=== PATIENT | male | born 1970 | race Two or more races ===

== ENCOUNTER 2023-08-11 12:37 | Emergency (ER) | payer OTHER ==
[~2023-08-11] VITALS: Ht 180.3 cm; Wt 79.4 kg
[~2023-08-11 12:37] MED LIST: FLUCONAZOLE150 MG PO; ULTRACET PO
[2023-08-11] MEDS ORDERED: XANAX2 MG PO (12:55)
[2023-08-11] MEDS ORDERED: VRAYLAR6 MG PO (12:56)
[2023-08-11 15:47] LABS: CALCIUM 8.8 mg/dL (8.5-10.1); CREATININE SERUM 1.02 mg/dL (0.70-1.30); GFR 76.69
== END 2023-08-11 16:27 | disposition home or self-care (01) ==
LOC: ER 12:38
PROVIDERS: General Practice
DX: R21 Rash and other nonspecific skin eruption (principal); G24.01 Drug induced subacute dyskinesia; F20.89 Other schizophrenia

== ENCOUNTER 2023-08-16 10:37 | Emergency (ER) | payer OTHER ==
[~2023-08-16] VITALS: Ht 180.3 cm; Wt 79.4 kg
[~2023-08-16 10:37] MED LIST changes: +VRAYLAR6 MG PO; +XANAX2 MG PO
[2023-08-16] MEDS ORDERED: INDERAL XL80 MG PO (11:13)
[2023-08-16] MEDS ORDERED: RESTORIL30 M1 PO (11:14)
[2023-08-16] MEDS ORDERED: METHYLPREDNISOLONE SOD SUCC 125 MG VIAL IV STA (15:51)
[2023-08-16] MEDS ORDERED: DIPHENHYDRAMINE HCL 50 MG/ML VIAL 1ML IV STA (15:53)
== END 2023-08-16 18:18 | disposition home or self-care (01) ==
LOC: ER 10:37
DX: R21 Rash and other nonspecific skin eruption (principal); F20.9 Schizophrenia, unspecified; F31.9 Bipolar disorder, unspecified